=== PATIENT | male | born 1980 | race Caucasian/White ===

== ENCOUNTER → 2024-01-11 13:43 | Outpatient (REF) | payer BC, SELFPAY | LOC: HWEVLT 13:43 | PROVIDERS: ATTENDING PHYSICIAN Radiology Diagnostic Radiology | DX: I83.891 Varicose veins of right lower extremity with other complications (principal) | CPT/HCPCS: 93971 ==

== ENCOUNTER → 2024-03-19 09:40 | Outpatient (REF) | payer BC, SELFPAY | LOC: HWEVLT 09:40 | PROVIDERS: ATTENDING PHYSICIAN Radiology Diagnostic Radiology | DX: I83.891 Varicose veins of right lower extremity with other complications (principal) | CPT/HCPCS: 36478; C1769 ==

== ENCOUNTER → 2024-04-02 07:58 | Outpatient (REF) | payer BC, SELFPAY | LOC: HWEVLT 07:58 | PROVIDERS: ATTENDING PHYSICIAN Radiology Vascular & Interventional Radiology | DX: I83.891 Varicose veins of right lower extremity with other complications (principal) | CPT/HCPCS: 93971 ==